=== PATIENT | male | born 1990 | race Caucasian/White ===

== ENCOUNTER 2021-01-16 11:30 | Emergency (ER) | payer BC, SELFPAY ==
--- NOTE | ~2021-01-16 | XR_ITS ---
EXAMINATION: CHEST 1 VIEW CLINICAL INFORMATION: Shortness of breath. COMPARISON: None. TECHNIQUE: An AP view of the chest is provided. FINDINGS: The cardiac silhouette is not enlarged. The mediastinal and hilar contours are unremarkable. There are neither pleural effusions nor pneumothoraces. There are no consolidations. The osseous structures are unremarkable. XR/XR chest 1V IMPRESSION: No evidence for acute disease.
[2021-01-16 11:33] VITALS: BP 137/86; PULSE 90; RESP 18; TEMP 36.6; O2SAT 98; BMI 28.7
--- NOTE | 2021-01-16 12:14 | ECG_ITS ---
Test Reason : DIFF BREATHING Blood Pressure : / mmHG Vent. Rate : 067 BPM Atrial Rate : 067 BPM P-R Int : 144 ms QRS Dur : 092 ms QT Int : 372 ms P-R-T Axes : 032 034 036 degrees QTc Int : 393 ms Normal sinus rhythm Normal ECG No previous ECGs available Referred By: Evelyn Valdez Electronically Signed By:LEXI MATOS
--- NOTE | 2021-01-16 12:19 | PC.NURSE ---
pt alert and oriented, skin pwd, respirations even and unlabored, ls clear. pt reports being woken up from his sleep around 0500 with sob and midsternal chest pain with deep inspirations, and wheezing. now the wheezing has resolved and sob improved, pain in the chest also improved from 5 this morning to 3 now. pt tested positive for covid on 11/29/20
--- NOTE | 2021-01-16 12:47 | ED_ITS ---
HPI - General Adult General Chief complaint: General Medical Stated complaint: difficulty breathing Time Seen by Provider: 01/16/21 12:05 Source: patient Mode of arrival: ambulatory History of Present Illness HPI narrative: 30-year-old male with a past medical history COVID-19 positive on 11/29, presenting to the ED complaining of SOB since 5:00 a.m. with associated chest discomfort, worse with deep breathing and wheezing. Admits shortness of breath has mildly improved since onset. Denies fever, chills, cough, nausea/vomiting, LE edema, calf pain, recent travel, sick contacts Related Data Previous Rx's Medication Instructions Recorded albuterol sulfate 2 puff INHALATION Q4-6H PRN #6.7 g 01/16/21 Allergies Allergy/AdvReac Type Severity Reaction Status Date / Time amoxicillin Allergy Anaphylaxis Verified 01/16/21 11:33 Penicillins Allergy Anaphylaxis Verified 01/16/21 11:33 Review of Systems Review of Systems: Constitutional: No Fever, No Chills Cardiovascular: + Chest Pain, + SOB, + Dyspnea on Exertion, No Orthopnea, No Edema Respiratory: No Cough, No Sputum, + Wheezing, No Smoke Exposure, No Dyspnea Gastrointestinal: No Nausea, No Vomiting, +Abdominal pain (resolved) Musculoskeletal: No joint pain, No Myalgias, No Joint Swelling Skin: No Skin Lesions, No rash Yes all other systems are reviewed and are negative PMFSH Past Medical History Attestation statement: The following information was validated with the patient. Medical History (Updated 01/16/21 @ 14:05 by MARIO Tran) COVID-19 Surgical History (Updated 01/16/21 @ 11:38 by Johana Gonzales RN) H/O detached retina repair Social History Social History Smoking Status: Never smoker Use of substances other than those prescribed or required for medical reasons: No Advance Directives: No Advance Directives Information Provided: Yes Physical Exam Vital Signs: Vital Signs: Last Vital Signs Temp 97.9 F 01/16/21 11:33 Pulse 90 01/16/21 11:33 Resp 18 01/16/21 11:33 BP 137/86 01/16/21 11:33 Pulse Ox 98 01/16/21 11:33 Body Mass Index 28.7 Const: General: cooperative, healthy appearing, comfortable, no acute distress and well developed Orientation/consciousness: patient oriented x3 Limitations: no limitations HENMT: Head: Yes normal to inspection Ears: hearing grossly normal bilaterally General nose exam: Normal external nose present Face and sinus: Yes normal facial exam Eyes: General: appearance normal, both eyes and all related structures EOM: EOMs intact bilaterally Neck: Neck: Yes normal visual inspection Resp: Effort & Inspection: normal respiratory effort Auscultation: clear to auscultation bilaterally, no rales, no rhonchi and no wheezes Cardio: Rate: regular rate Heart sounds: S1 normal heart sound present and S2 normal heart sound present GI: Inspection: Yes normal to inspection Palpation (GI): Soft to palpation, nontender, no guarding and not rigid Skin: Rashes: no rashes Wounds: no wounds Neuro: General: patient oriented x3 Gait exam (Neuro): Normal gait present Extrem: Other: No calf tenderness General: Yes normal to inspection and Yes no pedal edema Course Course Course Narrative: -1400--labs unremarkable, troponin negative, D-dimer negative. XR chest 1V IMPRESSION: No evidence for acute disease. > results discussed with patient including worrisome signs and symptoms and strict return precautions. He verbalized understanding feel safe for discharge home to follow-up with PCP Medical Decision Making MDM Narrative Medical decision making narrative: 30-year-old male with a past medical history COVID-19 positive on 11/29, presenting to the ED complaining of SOB since 5:00 a.m. with associated chest discomfort, worse with deep breathing and wheezing. On exam VSS, NAD/well-appearing, lungs CTA, no LE edema or calf tenderness. Concern for residual COVID-19 symptoms/viral illness vs PE. Low concern for bacterial pneumonia/CHF or ACS Plan: EKG, labs, CXR, re-evaluate Lab Data Result diagrams: 01/16/21 12:46 01/16/21 12:46 Labs: Lab Results 01/16/21 01/16/21 01/16/21 Range/Units 12:46 12:46 12:46 WBC 5.3 (4.8-10.8) X10*3/uL RBC 5.22 (4.60-5.80) X10*6/uL Hgb 15.1 (14.0-18.0) g/dl Hct 42.9 (42-52) % MCV 82.2 (80-98) fL MCH 28.9 (27.0-33.0) pg MCHC 35.2 (31.0-36.0) g/dl RDW 11.9 (11.0-16.0) % Plt Count 200 (160-400) X10*3/uL MPV 9.3 L (9.4-12.4) fL Immature Gran % (Auto) 0.2 (0.0-0.4) % Neut % (Auto) 61.0 (45-73) % Lymph % (Auto) 26.3 (20-40) % [place] % (Auto) 8.9 (2-11) % Eos % (Auto) 2.8 (0-4) % Baso % (Auto) 0.8 (0-2) % Lymph # (Auto) 1.4 (1.2-4.9) X10*3/uL [place] # (Auto) 0.5 (0.1-1.2) X10*3/uL Eos # (Auto) 0.2 (0.0-0.4) X10*3/uL Baso # (Auto) 0.0 (0.0-0.2) X10*3/uL Abs Immat Gran (auto) 0.01 (0.00-0.03) X10*3/uL Absolute Neuts (auto) 3.2 (2.0-8.3) X10*3/uL Absolute Nucleated RBC 0.000 (0.0-0.012) X10*3/uL Nucleated RBC % (auto) 0.0 (0.0-0.2) /100WBC PT 12.1 (10.8-13.0) SEC INR 1.0 (0.9-1.1) APTT 32.6 (24.1-38.0) SEC D-Dimer < 200 NG/ML Sodium 142 (135-145) mmol/L Potassium 3.8 (3.3-5.1) mmol/L Chloride 105 (96-108) mmol/L Carbon Dioxide 29 (22-29) mmol/L Anion Gap 12 (12-20) BUN 15 (9-16) mg/dL Creatinine 0.97 (0.5-1.4) mg/dL Estim Creat Clear Calc 124.9 Estimated GFR > 60 Random Glucose 86 (60-115) mg/dL Calcium 9.6 (8.4-10.2) mg/dL Troponin I High Sens (<3.5-35.0) ng/L B-Natriuretic Peptide (<100) pg/mL 01/16/21 01/16/21 Range/Units 12:46 12:46 WBC (4.8-10.8) X10*3/uL RBC (4.60-5.80) X10*6/uL Hgb (14.0-18.0) g/dl Hct (42-52) % MCV (80-98) fL MCH (27.0-33.0) pg MCHC (31.0-36.0) g/dl RDW (11.0-16.0) % Plt Count (160-400) X10*3/uL MPV (9.4-12.4) fL Immature Gran % (Auto) (0.0-0.4) % Neut % (Auto) (45-73) % Lymph % (Auto) (20-40) % [place] % (Auto) (2-11) % Eos % (Auto) (0-4) % Baso % (Auto) (0-2) % Lymph # (Auto) (1.2-4.9) X10*3/uL [place] # (Auto) (0.1-1.2) X10*3/uL Eos # (Auto) (0.0-0.4) X10*3/uL Baso # (Auto) (0.0-0.2) X10*3/uL Abs Immat Gran (auto) (0.00-0.03) X10*3/uL Absolute Neuts (auto) (2.0-8.3) X10*3/uL Absolute Nucleated RBC (0.0-0.012) X10*3/uL Nucleated RBC % (auto) (0.0-0.2) /100WBC PT (10.8-13.0) SEC INR (0.9-1.1) APTT (24.1-38.0) SEC D-Dimer NG/ML Sodium (135-145) mmol/L Potassium (3.3-5.1) mmol/L Chloride (96-108) mmol/L Carbon Dioxide (22-29) mmol/L Anion Gap (12-20) BUN (9-16) mg/dL Creatinine (0.5-1.4) mg/dL Estim Creat Clear Calc Estimated GFR Random Glucose (60-115) mg/dL Calcium (8.4-10.2) mg/dL Troponin I High Sens < 3.5 (<3.5-35.0) ng/L B-Natriuretic Peptide 21 (<100) pg/mL ECG Data Attestation: I personally reviewed and interpreted this ECG as follows: Prior ECG tracings: not available for review Interpretation: EKG normal sinus rhythm. Rate of 67. No STEMI. Discharge Plan Discharge Clinical Impression: Dyspnea Qualifiers: Dyspnea type: unspecified Qualified Code(s): R06.00 - Dyspnea, unspecified Patient Disposition: Home, Self-Care Instructions: Dyspnea (ED) Additional Instructions: Your blood work and chest x-ray were reassuring today in the ED Use albuterol inhaler at home as needed for shortness of breath/wheezing Follow-up with her primary care doctor If you develop constant worsening shortness of breath, chest pain, fever, or persistent cough return to the ED Prescriptions: New albuterol sulfate 90 mcg/actuation HFA aerosol inhaler 2 puff inhalation Q4-6H PRN (Reason: shortness of breath or wheezing) Qty: 6.7 RF: 0 Referrals: Justin Newsome MD [Primary Care Provider] - 5 days
[2021-01-16 12:54] LABS: Basophils Percent Auto 0.8 % (0-2); Eosinophils Absolute Auto 0.2 X10*3/uL (0.0-0.4); Eosinophils Percent Auto 2.8 % (0-4); Hematocrit 42.9 % (42-52); Hemoglobin 15.1 g/dl (14.0-18.0); Imm Gran Abs Auto 0.01 X10*3/uL (0.00-0.03); Imm Gran Pct Auto 0.2 % (0.0-0.4); Lymphocytes Absolute Auto 1.4 X10*3/uL (1.2-4.9); Lymphocytes Percent Auto 26.3 % (20-40); MANUAL DIFF FLAG NO; Mean Corpuscular HGB Conc 35.2 g/dl (31.0-36.0); Mean Corpuscular Hemoglobin 28.9 pg (27.0-33.0); Mean Corpuscular Volume 82.2 fL (80-98); Mean Platelet Volume 9.3 fL (9.4-12.4); Monocytes Absolute Auto 0.5 X10*3/uL (0.1-1.2); Monocytes Percent Auto 8.9 % (2-11); Neutrophils Absolute Auto 3.2 X10*3/uL (2.0-8.3); Platelet Count 200 X10*3/uL (160-400); Red Blood Count 5.22 X10*6/uL (4.60-5.80); Red Cell Distribution Width 11.9 % (11.0-16.0); White Blood Count 5.3 X10*3/uL (4.8-10.8)
[2021-01-16 13:02] LABS: Prothrombin Time 12.1 SEC (10.8-13.0)
[2021-01-16 13:05] LABS: D Dimer < 200 NG/ML; Partial Thromboplastin Time 32.6 SEC (24.1-38.0)
[2021-01-16 13:23] LABS: Anion Gap 12 (12-20); Blood Urea Nitrogen 15 mg/dL (9-16); Calcium 9.6 mg/dL (8.4-10.2); Carbon Dioxide 29 mmol/L (22-29); Chloride 105 mmol/L (96-108); Creatinine Clr Calc Pharmacy 124.9; Estimated Glomerular Filt Rate > 60; Glucose Random 86 mg/dL (60-115); Potassium 3.8 mmol/L (3.3-5.1); Sodium 142 mmol/L (135-145)
[2021-01-16 13:30] LABS: Troponin-I High Sensitivity < 3.5 ng/L (<3.5-35.0)
[2021-01-16 13:32] LABS: B Type Natriuretic Peptide 21 pg/mL (<100)
== END 2021-01-16 14:19 | disposition home or self-care (01) ==
PROVIDERS: Physician Assistant; Emergency Provider Emergency Medicine Emergency Medical Services; PCP Internal Medicine Medical Oncology
DX: R06.00 Dyspnea, unspecified (principal); R07.9 Chest pain, unspecified; Z86.16 Personal history of COVID-19
CPT/HCPCS: 36415; 71045; 80048; 83880; 84484; 85025; 85379; 85610; 85730; 93005; 99283; 99284

== ENCOUNTER → 2021-10-29 08:07 | Outpatient (BNVA) | payer BC, SELFPAY | PROVIDERS: PCP Internal Medicine Medical Oncology; Visit Provider Nurse Practitioner Family ==

== ENCOUNTER 2025-05-27 12:21 | Outpatient (AMB) | payer BC, SELFPAY ==
[2025-05-27 12:29] VITALS: BP 126/74; PULSE 76; O2SAT 98; BMI 30.7
--- NOTE | 2025-05-27 12:29 | MHC.PC.OV ---
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 Required: No Accompanied by: Self / Same As Patient Allergies amoxicillin Allergy (Verified 05/27/25 12:30) Anaphylaxis Penicillins Allergy (Verified 05/27/25 12:30) Anaphylaxis Medication List - Last Reconciled 05/27/25 by CUATE Staley No Known Home Meds Tobacco use date assessed: 05/27/25 Dental Screening Dental Screen Date: 05/27/25 Did you have a dental visit in the last 12 months?: Yes Did you have a dental problem in the last 6 months where you did not have access to dental care?: No Was dental information given to patient?: Patient has dentist 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 He denies experiencing any chest pain, dyspnea, abdominal pain, hematochezia, constipation, or diarrhea. He also denies any suicidal or homicidal ideation and reports feeling quite well overall. The patient does not engage in smoking or alcohol consumption. Pt is interested in a vasectomy, has 4 children Health Maintenance - Routine wellness visit planned - Future fasting labs recommended Social History - Substance Use: Does not smoke or drink alcohol Review of Systems - Cardiovascular: Denies chest pain - Respiratory: Denies dyspnea - Gastrointestinal: Denies abdominal pain, hematochezia, constipation, diarrhea - Psychiatric: Denies suicidal ideation, homicidal ideation Physical Exam General: Cooperative, healthy appearing, comfortable, no acute distress and well developed Orientation: Patient oriented x3 Limitations: No limitations Head: Normal to inspection Ears: Hearing grossly normal bilaterally Nose: Normal external nose present Face and sinus: Normal facial exam Eyes: Appearance normal, both eyes and all related structures Neck: Normal visual inspection and Yes full ROM Respiratory: Normal respiratory effort and able to speak in complete sentences. Clear to auscultation bilaterally Cardiovascular: Regular rate and rhythm. Normal S1 and S2 GI: Normal to inspection. Soft to palpation and nontender : Testicles without masses/lesions and no hernias appreciated Skin: No rashes or lesions noted Neuro: Patient oriented x3 Extremities: Normal to inspection Results Plan The patient will undergo routine fasting laboratory tests in the near future to monitor his health status as part of preventative care. Discussion Notes I discussed with the patient the importance of routine wellness visits and the plan to conduct fasting laboratory tests to ensure his continued good health. Patient Instructions - Schedule and complete fasting lab tests as discussed [facility] Medical History COVID-19 Surgical History Laceration of right hand H/O detached retina repair Family History Father Drug overdose Substance abuse Mother Heart murmur CVD (cardiovascular disease) Social History Housing: House Alcohol intake: never Patient Tobacco Use Status: Never used Tobacco e-Cigarette/Vaping Use: Never Used Second Hand Smoke Exposure: No Use of substances other than those prescribed or required for medical reasons: No service: Yes Current occupational status: employed Current occupation: [employer] Current occupational exposures/hazards: Yes Cognitive needs: No Hearing needs: No Vision needs: No Questionnaire PHQ-9 Over the last 2 weeks, how often have you been bothered by any of the following problems? 1. Little interest or pleasure in doing things: not at all 2. Feeling down, depressed, or hopeless: not at all 3. Trouble falling or staying asleep, or sleeping too much: not at all 4. Feeling tired or having little energy: not at all 5. Poor appetite or overeating: not at all 6. Feeling bad about yourself - or that you are a failure or have let yourself or your family down: not at all 7. Trouble concentrating on things, such as reading the newspaper or watching television: not at all 8. Moving or speaking so slowly that other people could have noticed. Or the opposite - being so fidgety or restless that you have been moving around a lot more than usual: not at all 9. Thoughts that you would be better off or of hurting yourself in some way: not at all Total score: 0 Depression Screening Interpretation: Negative Depression Screening Done: Yes 56257 - PHQ-9 Billing: Yes Source: Developed by Drs. Justin Singh, Jeannie Fernandez, Bennett Bhandari and colleagues, with an educational alison from [employer]. Thrive Questionnaire Date Thrive assessed: 05/27/25 I am a: Patient What is your living situation today?: I have a steady place to live Within the past 12 months, did the food you bought not last and you didn't have the money to get more?: Never true Within the past 12 months, did you worry whether your food would run out before you got money to buy more?: Never true Do you have trouble paying for medicines?: No Do you have trouble getting transportation to medical appointments?: No Do you have trouble paying your heating and electricity bill?: No Do you have trouble taking care of your child, family member or friend?: No Do you have trouble with day-to-day activities such as bathing, preparing meals, shopping, managing finances, etc.?: No Are you currently unemployed and looking for a job?: No Are you interested in more education?: No Please select the resources that you would like help with: None Currently or been in a relationship where the following occur: No concerns reported THRIVE Score: 0 AUDIT C Alcohol Use Questionnaire (AUDIT-C) 1. How often do you have a drink containing alcohol?: Never 3. How often do you have six or more drinks on one occasion?: Never Total Score: 0 Score Reviewed/Action Taken: Yes NADEEM-7 AMB Questionnaire NADEEM-7 Date NADEEM - 7 assessed: 05/27/25 Feeling nervous, anxious, or on edge: 0 = Not at all Not being able to stop or control worryin = Not at all Worrying too much about different things: 0 = Not at all Trouble relaxin = Not at all Being so restless that it is hard to sit still: 0 = Not at all Becoming easily annoyed or irritable: 0 = Not at all Feeling afraid as if something awful might happen: 0 = Not at all Total NADEEM-7 score (0-4 normal; 5-9 mild; 10-14 moderate; 15-21 severe): 0 Source: Developed by Jeannie Alonzo Kurt Kroenke and colleagues, with an educational alison from [employer]. NADEEM-7 Assessment Billing NADEEM-7 Assessment Tool: NADEEM-7 Assessment 96641 Physical exam (Primary Care) Vital Signs: Last Vital Signs Pulse 76 05/27/25 12:29 BP 126/74 05/27/25 12:29 Pulse Ox 98 05/27/25 12:29 Oxygen Delivery Method Room Air 05/27/25 12:29 BMI result Body Mass Index 30.7 Tobacco/Smoking Status: Tobacco use Status Tobacco use date assessed 05/27/25 05/27/25 12:33 Patient Tobacco Use Status Never used Tobacco 05/27/25 12:41 Tobacco use type 05/27/25 12:41 e-Cigarette/Vaping Use Never Used 05/27/25 12:40 PHQ-9: PHQ-9 Score PHQ-9: Total score 0 05/27/25 12:41 Depression Screening Interpretation: Negative Thrive Assessment: Date of Thrive Assessment Date Thrive assessed 05/27/25 05/27/25 12:33 Currently or been in a relationship where the following occur: No concerns reported Coding Level of Care Code New Pt Prev Care 18-39yr(29794 Diagnoses Physical exam Z00.00 Visit for vasectomy evaluation Z30.09 Additional Codes NADEEM-7 Assessment Billing - NADEEM-7 Assessment Tool: NADEEM-7 Assessment 13645 ([id number]) PHQ-9 - 69882 - PHQ-9 Billing: Yes ([id number]) Assessment & Plan Assessment & Plan (1) Physical exam: Code(s): Z00.00 - Encounter for general adult medical examination without abnormal findings Category: Medical (2) Visit for vasectomy evaluation: Code(s): Z30.09 - Encounter for other general counseling and advice on contraception Category: Medical Plan . Orders: Referrals Urology Referral Z30.09 - Encounter for other general counseling and advice on contraception
--- OUTSIDE RECORDS SUMMARY | 2025-05-27 13:10 | XMS_ITS ---
Author Name [facility] Organization Unknown Encounters Encounter Type Encounter Reason Primary Diagnosis Location Date Ambulatory [facility], [facility]. ([facility]) 11/02/2022
--- OUTSIDE RECORDS SUMMARY | 2025-05-27 13:10 | XMS_ITS | Data Portability ---
Author Organization [facility] [address] [place] [address] Assessment No assessment recorded. Plan of Treatment Reminders Order Date Submit Date Provider Last Modified By Organization Details Last Modified Time Details Appointments None recorded. Lab rapid flu (A+B) 2021 022 [email or web address] 1 2099catherinedaljit [facility], [address] [place] [address], [id number], 11:46:20 Referral None recorded. Procedures None recorded. Surgeries None recorded. Imaging None recorded. Medication Orders doxycycline hyclate 100 mg capsule 2021 [id number], [address] [facility], [place], [address], 11:46:23 Patient TargetsNo targets recorded. Patient Instructions Encounter Date Encounter Id Patient Instructions Last Modified By Organization Details Last Modified Time 11/02/2022 [id number] Fever: Care Instructions [email or web address] Not available 11/02/2022 11:46:20 Acute Sinusitis: Care Instructions [email or web address] Not available 11/02/2022 11:46:20 Reason for Referral None Reported. Results Created Date Observation Date Name Description Value Unit Range Abnormal Flag Note LastModifiedBy Organization Detail LastModifiedTime 11/02/2011/02/2022 rapid flu (A+B) Unknown Analyte Normal = Negati ve Not Available [facility] [address] [place] [address], [phone], 11/02/2022 10:59:21 11/02/20 22 11/02/2022 rapid flu (A+B) Unknown Analyte Normal = Negati ve Not Available 2099morris rogers [address], [address], 11/02/2022 10:59:21 11/02/20 22 11/02/2022 rapid flu (A+B) Unknown Analyte negati ve Not Available 2099morris rogers [address], [address], 11/02/2022 10:59:21 11/02/20 22 11/02/2022 rapid flu (A+B) Unknown Analyte negati ve Not Available 2099morris rogers [address], [address], 11/02/2022 10:59:21 Result Notes None recorded. Problems No Known Problems Medical Equipment None Reported. Allergies Allergen ID Allergen Name Allergen Category Reaction Reaction Severity Criticality Documentation Date Start Date Code Code System Note Provider Name and Address Organization Details Recorded Time 77293 amoxicill in medicatio n anaphylax is severe high 11/02/2022 723 RxNorm Rhianna Tristan sharlene, [place] - [facility] 2 10:57:24 22733 Product containin g penicilli n (product) medicatio n anaphylax is severe high 11/02/2022 42190 8001 SNOMED Rhianna Tristan null, PA - [facility] 2 10:57:38 Medications Name Sig Start Date Stop Date Status Note LastModified by Organization Details LastModified Time doxycycline hyclate 100 mg capsule Take 1 capsule twice a day by oral route with meals for 7 days. 022 active Not Available Not Available Not Avai lable Vitals Date Recorded Body height Body mass index (BMI) Body weight Oxygen saturation Oxygen saturation in Arterial blood by Pulse oximetry Heart rate Respiratory rate Body temperature Systolic And Diastolic Provider Name and Address Organization Details Last Updated DateTime 177.8 cm 28.7 kg/m2 48946.4 7 g 99 % 99 % 89 /min 18 /min 98.6 [degF] 112/76 mm[Hg] Rhianna Hudson PA - [facility] 10:56:28 Social History Question Answer Notes LastModified by Organizat ion Details LastModified Time Tobacco Smoking Status Never Smoker Rhianna su PA - [facility] 11/02/2022 10:58:30 Have You Had Direct Contact, Or Contact During Intimacy, With Monkeypox Rash, Scabs, Or Body Fluids From A Person With Monkeypox? No Information not available 11/02/2022 Have You Recently Traveled Abroad? No Information not available 11/02/2022 Sex: Unknown Functional Status Question Answer Note LastModified by Organizat ion Details LastModified Time Do you use any illicit or recreational drugs? No Information not available 11/02/2022 Do you or have you ever used any other forms of tobacco or nicotine? No Information not available 11/02/2022 What is your level of alcohol consumption? None Information not available 11/02/2022 Mental Status None recorded. Family History Relationship Description Onset Age of this Age Resolved Age Notes LastModified by Organization Details LastModified Time Father No current problems or disability Not available 11/02 10:58:21 Mother No current problems or disability Not available 11/02 10:58:21 Medical History No medical history recorded. Past Encounters Encounter ID Performer Location Encounter Start Date Encounter Closed Date Diagnosis/Indication Diagnosis SNOMED-CT Code Diagnosis ICD10 Code Diagnosis Note [id number] _[facility] opEthanri Isamar _[facility] [address] [address] 11/29/2020 10:20:06 11/29/2020 14:28:47 [id number] GREG FERNÁNDEZ MD [address]_[facility] [address] [address] 11/02/2022 08:27:42 11/02/2022 11:47:20 Fever [id number] R50.9 Acute sinusitis 34513488 J01.90 If your symptoms worsen or persist you should be re-evaluat ed. Return to [facility] or see your primary care physician if your symptoms fail to improve in 5-7 days. You should follow up sooner if your symptoms worsen significan tly or if you develop new symptoms that concern you. Drink plenty of fluids If you are having thick mucus, you can useMUCINEX PLAINto help with your symptoms. Mucinex helps to thin mucus and works best when you drink plenty of water/flui ds throughout the whole day. If you are having thick mucus and a cough, you can useMUCINEX -DMto help with your symptoms. Mucinex helps to thin mucus and the DM is the cough suppressan t. This will work best when you drink plenty of water/flui ds throughout the whole day. If you just have coughand not thick mucus, you can useDELSYMt o help with your symptoms. Some people feel DELSYM makes them feel a little tired so you may want to use cough drops during the day and add the DELSYM in at night. Health Concerns Section Related Observation LastModified by Organization Detai ls LastModified Time None Recorded Concern Status LastModified by Organization Details LastModified Time None Recorded Advance Directives Directive None Recorded Payers Insurance Date Sequence Insurance Name Policy Number Policy [place] Covered Member ID [place] Member ID Guarantor Name 11/02/2022 1 [facility] ([id number]) [id number] Lionel Perkins [id number] Lionel Perkins Notes Date Note Type Note Provider Name and Address Organization Details Recorded Time 11/02/2022 text/html FeverReported bypatient.source of patient informationpatient Severity:102 degrees F Duration:constant Modifying Factors:OTC medication (tylenol/ibuprofen combo twice a day helps) started 2 wks ago with mild congestion, mild cough, fevers - lasted a few days, improved for a day, and then returned and has been constant since. Temp last night 102.3. Still with mild congestion, drainage, cough - worse at night when lying down GREG FERNÁNDEZ MD [address] [place], [address], [place] - [facility] 11/02/2022 11:47:42
== END 2025-05-27 14:51 | disposition home or self-care (01) ==
LOC: HO.HMCC 12:22
PROVIDERS: PCP Nurse Practitioner Family; Visit Provider Nurse Practitioner Family
DX: Z00.00 Encounter for general adult medical examination without abnormal findings (principal)

== ENCOUNTER → 2025-05-27 12:21 | Outpatient (BNVA) | payer BC, SELFPAY | PROVIDERS: PCP Nurse Practitioner Family; Visit Provider Nurse Practitioner Family | DX: Z00.00 Encounter for general adult medical examination without abnormal findings (principal); Z30.09 Encounter for other general counseling and advice on contraception | CPT/HCPCS: 96127 ==

== ENCOUNTER 2025-07-01 08:37 | Outpatient (REF) | payer BC, SELFPAY ==
--- OUTSIDE RECORDS SUMMARY | 2025-07-01 08:52 | XMS_ITS | Patient Health Record ---
Author Organization Justin Newsome III, MD Address [address] [place] [address] [place] [id number] Care Team Providers Care Wrapper Off Name Role Phone Justin Newsome Primary Care Provider Allergies Allergen (clinical drug ingredient) Drug/Non Drug Allergy documented on EMR Reaction Allergy Type Onset Date Status Penicillin Unknown Drug Allergy Active amoxicillin Amoxicillin Unknown Drug Allergy Act femi Reason For Referral No Information Medications Medication SIG (Take, Route, Fr equency, Duration) Notes Start Date End Date Status Omeprazole 40 MG 1 capsule 30 minutes before morning meal Orally Once a day Active Social History Tobacco Use: Social History Observation Description Date Details (start date - stop date) Former Smoker NA - NA Tobacco Use/Smoking Question Answer Notes Patient is a former smoker How long has it been since you last smoked? 5-10 years Additional Findings: Tobacco Non-User Ex-cigaret te smoker Alcohol Screen Question Answer Notes Did you have a drink contain ing alcohol in the past year? Yes How often did you have a dri nk containing alcohol in the past year? Monthly or less (1 point) How many drinks did you have on a typical day when you were drinking in the past year? 1 or 2 drinks (0 point) How often did you have 6 or more drinks on one occasion in the past year? Never (0 point) Points 1 Interpretation Negative Problems Problem Type SNOMED Code ICD Code Onset Dates Problem Status W/U Status Risk Notes Problem 5729678 Former smoker (Z87.891) Active confirmed He has a plan a nd a strategy to prevent relapse in times of stress and illness. Problem 560190782813040 Obesity (BMI 30.0-34.9) (E66.9) Active confirmed His body mass index is now 33.75. He has gained 5 pounds. We discussed a diet that would cause a weight loss of 1/2 pound per week. 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 He was given penicillin and developed a rash. Problem 042134540 Chronic GERD (K21.9) Active confirmed The omeprazole was increased to 40 mg daily and he will see gastroenterology later this month. He is beginning to feel better. Plan Of Treatment Pending Test Test Name Order Date PROFILE, FASTING (COMPREHENSIVE METABOLI C) 02/24/2021 PROFILE, RANDOM (COMPREHENSIVE METABOLIC ) 02/22/2019 LIPID PANEL 02/24/2021 LIPID PANEL 02/22/2019 CBC w DIFF 02/24/2021 CBC w DIFF 02/22/2019 XR KNEE LT 4 VIEWS 07/22/2020 Insurance Providers Payer Name Payer Address Payer Phone Subscriber Number Group Number Insured Name Patient Relationship to Insured Coverage Start Date Coverage End Date [facility] [address] [place], [place] [id number] Lionel Perkins Self - patient is the insured Medical (General) History Medical History History ICD Code Obesity (BMI 30-39.9) E66.9 penicillin allergy detach retina left eye, age 7, poor visi on, left eye laceration right hand 2013 former smoker 20:200 left eye 1.5 cm right intercostal mass October 2020 Covid19 Mane virus infection November 2020 Surgical History Surgery Date(Month/Year) retina detachment 1998 laceration right hand, repaired 2013
[2025-07-01 10:04] LABS: MANUAL DIFF FLAG NO
[2025-07-01 10:12] LABS: Appearance Urine Clear; Glucose Urine UA Negative (Negative); PH 6.0 (5.0-9.0); Specific Gravity - Urine 1.025 (1.005-1.025)
[2025-07-01 10:19] LABS: Hematocrit 40.9 % (42.0-52.0); Hemoglobin 14.0 g/dl (14.0-18.0); Imm Gran Abs Auto 0.01 X10*3/uL (0.00-0.03); Imm Gran Pct Auto 0.2 % (0.0-0.4); Lymphocytes Absolute Auto 1.3 X10*3/uL (1.2-4.9); Mean Corpuscular HGB Conc 34.2 g/dl (31.0-36.0); Mean Corpuscular Hemoglobin 28.7 pg (27.0-33.0); Mean Corpuscular Volume 84.0 fL (80.0-98.0); NRBC Abs Auto 0.000 X10*3/uL (0.0-0.012); NRBC Pct Auto 0.0 /100WBC (0.0-0.2); Platelet Count 183 X10*3/uL (160-400); Red Blood Count 4.87 X10*6/uL (4.60-5.80); White Blood Count 4.4 X10*3/uL (4.8-10.8)
[2025-07-01 10:48] LABS: Alanine Aminotransferase 28 U/L (0-40); Albumin Level 4.6 g/dL (3.5-5.0); Alkaline Phosphatase 80 U/L (39-117); Anion Gap 12 (12-20); Aspartate Amino Transferase 22 U/L (5-37); Blood Urea Nitrogen 17 mg/dL (9-16); Calcium 9.3 mg/dL (8.4-10.2); Carbon Dioxide 29 mmol/L (22-29); Chloride 106 mmol/L (96-108); Cholesterol 188 mg/dL (<200); Estimated Glomerular Filt Rate > 60; HDL Cholesterol 34 mg/dL (>40); Potassium 4.0 mmol/L (3.3-5.1); Sodium 143 mmol/L (135-145); Total Protein 7.2 g/dL (6.5-8.0); Triglycerides 155 mg/dL (<150)
== END 2025-07-01 08:38 | disposition home or self-care (01) ==
LOC: HO.HMGCLDS 08:37
PROVIDERS: PCP Nurse Practitioner Family; Visit Provider Nurse Practitioner Family
DX: Z00.00 Encounter for general adult medical examination without abnormal findings (principal)
CPT/HCPCS: 36415; 80053; 80061; 81003; 82306; 84443; 85025

== ENCOUNTER 2025-08-25 13:48 | Outpatient (AMB) | payer BC, SELFPAY ==
--- NOTE | 2025-08-25 13:57 | MHC.OFFVIS ---
Intake Visit Reasons: vasectomy consultation Intake Note: Patient is present for VASECTOMY CONSULTATION Urology Medication:NONE Antibiotic Allergy:AMOXICILLIN,PENICILLINS Blood Thinner:NONE Box Car Bracer Required: No Allergies amoxicillin Allergy (Verified 08/25/25 21:26) Anaphylaxis Penicillins Allergy (Verified 08/25/25 21:26) Anaphylaxis Medication List - Last Reconciled 08/25/25 by ALEXSANDRA White No Known Home Meds HPI Comments Details: Lionel is a very pleasant 34-year-old male patient of Dr. Kramer. He presents to the office today for - vasectomy evaluation Vasectomy evaluation The patient presents for vasectomy consultation.? 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 Patient education has been provided via AUA video, via printed information, risks of failure, recovery time, bruising and potential pain syndrome have been stressed Discussion today focused on the presence of vasectomy and the risks, benefits and alternatives that are available. Vasectomy as intended as a permanent form of control. Printed information and literature was provided to the patient. Overall there is a one in 2500 failure rate. This can occur at any time after vasectomy. Risks were discussed highlighting hematoma, spermatocele, epididymal congestion, development of sperm antibodies, and development of chronic pain estimated between 1-5%. The procedure was reviewed in detail. Anatomical diagrams of the male genitalia were used to explain the location of the vas deferens. The vas deferens will be transected, the proximal end will be cauterized, a metal clip would be applied to separate the 2 vas deferens ends. It was explained the procedure will be done in the office and takes approximately 10-15 minutes. Less common problems that arise with vasectomy include hematoma, bleeding, allergic reaction to anesthetic, epididymal infection, epididymal congestion, scrotal discomfort, spermatic leak, spermatic granuloma and the possibility of antisperm antibodies. He understands these risks and wishes to proceed. Consent was signed at the office today. He also understands that it takes 12 weeks for sperm to fully clear the system. He will need to provide a semen sample at 12 weeks and if this is not clear a 2nd sample at 16 weeks. Medical clearance to stop using protection will only be provided if he satisfies published criteria for sperm clearance. 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 Current occupational exposures/hazards: Yes Cognitive needs: No Hearing needs: No Vision needs: No Review of Systems Const All systems reviewed & are unremarkable except as noted in HPI and below Physical Exam Const General: cooperative, healthy appearing, comfortable, no acute distress, well developed, alert and awake Orientation/consciousness: patient oriented x3 Limitations: no limitations HEENT Head: Yes normal to inspection, Yes normocephalic and Yes atraumatic Ears: hearing grossly normal bilaterally Eyes General: appearance normal, both eyes and all related structures Neck Neck: Yes normal visual inspection and Yes trachea midline Chest Chest palpation & inspection: normal inspection of the chest Resp Effort & Inspection: normal respiratory effort and able to speak in complete sentences Cardio Rate: regular rate GI Inspection: Yes normal to inspection General: Yes no CVA tenderness Back/Spine/Pelvis Back: no CVA tenderness Skin General skin exam: no rashes or lesions noted Neuro General: patient oriented x3 Extrem General: Yes normal to inspection Psych Appearance: grossly normal and well kempt Mental Status: mental status grossly normal Speech and movement: Normal speech and movement present and Clear speech present Affect: normal affect Attitude: cooperative Thought process: Normal thought process present Thought content: Normal thought content present Insight: Fair insight present (Psych) Judgement: Fair judgement present (Psych) Assessment & Plan Assessment & Plan (1) Visit for vasectomy evaluation: Code(s): Z30.09 - Encounter for other general counseling and advice on contraception Category: Medical (2) Anxiety about health: Code(s): R45.89 - Other symptoms and signs involving emotional state Category: Medical Plan Vasectomy was discussed in detail; risks and benefits; as noted above. All questions were answered. Prescriptions provided; we discussed importance of bringing medications to office day of procedure. We discussed fellows kit verses in office semen analysis. Consent was obtained. Will schedule for in office vasectomy as discussed. Follow-up per doctor's orders; or sooner with any issues, concerns, and or questions. Medications: New diazepam (Valium) Bringing medication to office day of procedure 2 mg PO DAILY 2 tabs 0RF anxiety R45.89 - Other symptoms and signs involving emotional state tramadol Bringing medication to office day of procedure 50 mg PO Q8H PRN 9 tabs 0RF pain 3 days Coding Level of Care Code New Pt Level 4 (38206) Diagnoses Visit for vasectomy evaluation Z30.09 Anxiety about health R45.89
--- OUTSIDE RECORDS SUMMARY | 2025-08-25 16:15 | XMS_ITS | Patient Health Record ---
Author Organization Justin Newsome III, MD Address [address] [place] [address] [place] [id number] Care Team Providers Care Toddler Nanny Name Role Phone Dr. Justni Newsome III Primary Care Provider [phone] Allergies Allergen (clinical drug ingredient) Drug/Non Drug [...] Problem Status W/U Status Risk Notes Problem 6659690 Former smoker (Z87.891) Active confirmed He has a plan a nd a strategy to prevent relapse in times of stress and illness. Problem [id number] Obesity (BMI 30.0-34.9) (E66.9) Active confirmed His body mass index is now 33.75. He has gained 5 pounds. We discussed a diet that would cause a weight loss of 1/2 pound per week. Problem 24434410 Penicillin allergy (Z88.0) Active confirmed When he was a child. He was given penicillin and developed a rash. Problem 727886438 Chronic GERD (K21.9) Active confirmed The omeprazole [...] Insured Coverage Start Date Coverage End Date [facility] [address] [place], [place] [id number] Lionel Perkins Self - patient is the [...]
== END 2025-08-25 14:59 | disposition home or self-care (01) ==
LOC: HO.HUSH 13:49
PROVIDERS: PCP Nurse Practitioner Family; Visit Provider Nurse Practitioner Family
DX: Z30.09 Encounter for other general counseling and advice on contraception (principal); R45.89 Other symptoms and signs involving emotional state
CPT/HCPCS: 99204